=== PATIENT | male | born 1970 | race Caucasian/White ===

== ENCOUNTER 2016-08-10 08:41 | Emergency (ER) | payer OTHER ==
[~2016-08-10] VITALS: Ht 185.4 cm; Wt 100.0 kg
[2016-08-10 08:48] VITALS: BP 157/103; TEMP 98.1
[2016-08-10 10:49] VITALS: PULSE 60
== END 2016-08-10 10:49 | disposition home or self-care (01) ==
LOC: COL.ER 08:41
DX: S01.312A Laceration without foreign body of left ear, initial encounter (principal); Z23 Encounter for immunization; W22.8XXA Striking against or struck by other objects, initial encounter